=== PATIENT | male | born 1940 | race Caucasian/White ===

== ENCOUNTER 2017-07-05 23:33 | Inpatient (IN) ==
[2017-07-06] MEDS ORDERED: ONDANSETRON 4 MG/2 ML VIAL IV STA (01:43)
[2017-07-06] MEDS ORDERED: SODIUM CHLORIDE 0.9% 500 ML IV STA (01:43)
[2017-07-06] MEDS ORDERED: ONDANSETRON 4 MG/2 ML VIAL ONE (01:57)
[2017-07-06 02:49] LABS: Basophils % 0.2 % (0.0-0.8); Eosinophils % 0.1 % (0.00-10.9); Hematocrit 38.9 VOL% (42.0-52.0); Hemoglobin 12.6 GM/DL (14.0-18.0); Immature Granulocytes % 0.8 %; Immature Granulocytes Absolute 0.12 #; Lymphocytes # 2.1 10*3/uL (1.4-4.0); Lymphocytes % 14.4 % (21.2-54.2); Mean Corpuscular HGB Conc 32.4 GM/DL (32-36); Mean Corpuscular Hemoglobin 32 PG (27-34); Mean Corpuscular Volume 98.5 FL (87-102); Mean Platelet Volume 10.1 FL (9.6-12.0); Monocytes # 0.5 10*3/uL (0.11-0.8); Monocytes % 3.5 % (1.7-12.7); Neutrophils # 11.6 10*3/uL (1.4-7.4); Platelet Count 160 T/CUMM (130-400); Red Blood Count 3.95 MC/CUMM (3.8-5.5); Red Cell Distribution Width 12.4 % (9.3-17.3); White Blood Count 14.3 T/CUMM (4-12)
[2017-07-06 02:58] LABS: INR 1.1; PT Patient Result 11.6 SECS
[2017-07-06 03:20] LABS: Alanine Aminotransferase 34 U/L (16-61); Albumin 3.7 G/DL (3.4-5.0); Alkaline Phosphatase 66 U/L (45-117); Aspartate Amino Transferase 37 U/L (0-37); Blood Urea Nitrogen 10 MG/DL (7-18); Calcium 8.8 MG/DL (8.5-10.1); Glucose 125 MG/DL (74-106); Osmolality,Calculated 274.7 MOS/KG (273-304); Potassium 3.6 MMOL/L (3.5-5.1); Sodium 138 MMOL/L (136-145); Troponin I Only < 0.015 NG/ML (0.00-0.045)
[2017-07-06 03:29] LABS: Apearance,Urine CLEAR (Clear); Bilirubin,Urine Negative (Negative); Blood, Urine Moderate mg/dL (Negative); Glucose,Urine (UA) Negative (Negative); Ketones,Urine 5 mg/dL (Negative); Mucus,Urine Occasional /LPF (Occasional); Nitrite,Urine Negative (Negative); Protein,Urine 30 MG/DL; RBC,Urine 69 /HPF (0-4); Urine Color Yellow (Yellow); Urine Specific Gravity 1.009 (1.001-1.035); Urine Urobilinogen < 2.0 EU/DL (0.2-1.0); WBC,Urine 4 /HPF (0-6)
[2017-07-06 03:57] LABS: Sedimentation Rate-Westergren 34 MM/HR (0-20)
[2017-07-06] MEDS ORDERED: CALCIUM (CARBONATE)/VITAMIN D 250 MG-125 UNIT TABLET PO SCH (09:00)
[2017-07-06] MEDS: TAMSULOSIN 0.4 MG CAPSULE PO SCH ×2 (10:24→21:35)
[2017-07-06] MEDS: ASCORBIC ACID 500 MG TABLET PO SCH (10:26)
[2017-07-06] MEDS: DIPYRIDAMOLE 50 MG TABLET PO SCH ×2 (10:27→15:01)
[2017-07-06] MEDS: TOBRAMYCIN/DEXAMETHASONE 0.3%-0.1% OPH SUSP 2.5 ML BOTTLE RIGHT EYE SCH ×3 (10:27→21:35)
[2017-07-06] MEDS: prednisoLONE ACETATE 1% OPH SUSP 5 ML BOTTLE BOTH EYES SCH (10:27)
[2017-07-06] MEDS: CALCIUM (CARBONATE)/VITAMIN D 500 MG-200 UNIT TABLET PO SCH (10:27)
[2017-07-06] MEDS: PARoxetine 20 MG TABLET PO SCH (10:27)
[2017-07-06] MEDS ORDERED: ONDANSETRON 4 MG/2 ML VIAL IV PRN (10:38)
[2017-07-06] MEDS: MULTIVITAMIN (CENTRUM) TABLET PO SCH (14:49)
[2017-07-06] MEDS: amLODIPine 5 MG TABLET PO SCH (14:49)
[2017-07-06] MEDS: PANTOPRAZOLE 40 MG TABLET PO SCH (14:49)
[2017-07-06] MEDS: HEPARIN DRIP 25,000 UNITS/500 ML PREMIX IV SCH (17:24)
[2017-07-06] MEDS: WARFARIN 5 MG TABLET PO SCH (17:32)
[2017-07-06] MEDS ORDERED: BIOTIN PO SCH (21:00)
[2017-07-06] MEDS: SIMVASTATIN 20 MG TABLET PO SCH (21:35)
[2017-07-07] MEDS ORDERED: ACETAMINOPHEN 325 MG TABLET PO PRN (00:18)
[2017-07-07 04:57] LABS: Basophils % 0.3 % (0.0-0.8); Eosinophils # 0.1 10*3/uL (0.0-0.87); Eosinophils % 0.8 % (0.00-10.9); Hematocrit 34.2 VOL% (42.0-52.0); Hemoglobin 11.2 GM/DL (14.0-18.0); Immature Granulocytes % 1.1 %; Immature Granulocytes Absolute 0.12 #; Lymphocytes # 2.6 10*3/uL (1.4-4.0); Lymphocytes % 24.9 % (21.2-54.2); Mean Corpuscular HGB Conc 32.7 GM/DL (32-36); Mean Corpuscular Hemoglobin 32 PG (27-34); Mean Platelet Volume 10.1 FL (9.6-12.0); Monocytes # 0.7 10*3/uL (0.11-0.8); Monocytes % 6.6 % (1.7-12.7); Neutrophils % 66.3 % (38.7-73.9); Platelet Count 158 T/CUMM (130-400); Red Blood Count 3.49 MC/CUMM (3.8-5.5); Red Cell Distribution Width 12.4 % (9.3-17.3); White Blood Count 10.6 T/CUMM (4-12)
[2017-07-07 05:10] LABS: INR 1.2; PT Patient Result 12.7 SECS
[2017-07-07 06:50] LABS: Calcium 8.9 MG/DL (8.5-10.1); Osmolality,Calculated 277.4 MOS/KG (273-304); Potassium 3.8 MMOL/L (3.5-5.1)
[2017-07-07 06:53] LABS: Calcium 8.9 MG/DL (8.5-10.1); Osmolality,Calculated 276.4 MOS/KG (273-304); Potassium 3.8 MMOL/L (3.5-5.1); Risk Ratio 3.08; Thyroid Stimulating Hormone 1.02 uIU/ml (0.358-3.74); VLDL CHOLESTEROL 21.6 MG/DL
[2017-07-07] MEDS: TAMSULOSIN 0.4 MG CAPSULE PO SCH ×2 (09:24→21:56)
[2017-07-07] MEDS: PARoxetine 20 MG TABLET PO SCH (09:24)
[2017-07-07] MEDS: CALCIUM (CARBONATE)/VITAMIN D 500 MG-200 UNIT TABLET PO SCH (09:24)
[2017-07-07] MEDS: ASCORBIC ACID 500 MG TABLET PO SCH (09:25)
[2017-07-07] MEDS: TOBRAMYCIN/DEXAMETHASONE 0.3%-0.1% OPH SUSP 2.5 ML BOTTLE RIGHT EYE SCH ×3 (09:25→21:57)
[2017-07-07] MEDS: MULTIVITAMIN (CENTRUM) TABLET PO SCH (11:36)
[2017-07-07] MEDS: PANTOPRAZOLE 40 MG TABLET PO SCH (11:36)
[2017-07-07] MEDS: amLODIPine 5 MG TABLET PO SCH (11:36)
[2017-07-07] MEDS: HEPARIN DRIP 25,000 UNITS/500 ML PREMIX IV SCH (16:23)
[2017-07-07] MEDS: WARFARIN 5 MG TABLET PO SCH (18:04)
[2017-07-07] MEDS: SIMVASTATIN 20 MG TABLET PO SCH (21:56)
[2017-07-07] MEDS: NEOMYCIN/POLYMYXIN/BACITRACIN OINT 0.9 GM PACK TOP SCH (21:57)
[2017-07-07] MEDS ORDERED: ZALEPLON 5 MG CAPSULE PO PRN (22:59)
[2017-07-08] MEDS: HEPARIN DRIP 25,000 UNITS/500 ML PREMIX IV SCH (02:20)
[2017-07-08 05:54] LABS: INR 1.6; PT Patient Result 16.7 SECS
[2017-07-08 06:13] LABS: Calcium 7.7 MG/DL (8.5-10.1); Potassium 3.2 MMOL/L (3.5-5.1)
[2017-07-08] MEDS: CALCIUM (CARBONATE)/VITAMIN D 500 MG-200 UNIT TABLET PO SCH (09:29)
[2017-07-08] MEDS: ASCORBIC ACID 500 MG TABLET PO SCH (09:30)
[2017-07-08] MEDS: POTASSIUM CHLORIDE 20 MEQ TABLET PO PRN ×2 (09:30→12:06)
[2017-07-08] MEDS: PARoxetine 20 MG TABLET PO SCH (09:30)
[2017-07-08] MEDS: TAMSULOSIN 0.4 MG CAPSULE PO SCH (09:31)
[2017-07-08] MEDS: prednisoLONE ACETATE 1% OPH SUSP 5 ML BOTTLE BOTH EYES SCH (09:32)
[2017-07-08] MEDS: NEOMYCIN/POLYMYXIN/BACITRACIN OINT 0.9 GM PACK TOP SCH (09:32)
[2017-07-08] MEDS: TOBRAMYCIN/DEXAMETHASONE 0.3%-0.1% OPH SUSP 2.5 ML BOTTLE RIGHT EYE SCH (09:32)
[2017-07-08 11:22] VITALS: BP 110/62
[2017-07-08] MEDS: PANTOPRAZOLE 40 MG TABLET PO SCH (12:06)
[2017-07-08] MEDS: amLODIPine 5 MG TABLET PO SCH (12:06)
[2017-07-08] MEDS: MULTIVITAMIN (CENTRUM) TABLET PO SCH (12:06)
== END 2017-07-08 14:00 | DRG 66 ==
LOC: EDUNIT# → EDBD → N.EDINP 23:33 → N.ED 23:33 → N.TELES 07-06 05:32
PROVIDERS: ADMIT Hospitalist; ATTEND Hospitalist

== ENCOUNTER 2020-10-06 05:34 | Inpatient (IN) ==
[2020-09-29 12:39] LABS: Bilirubin,Urine Negative (Negative); Blood, Urine Negative (Negative); Glucose,Urine (UA) Negative (Negative); Hyaline Casts,Urine 1 /LPF (0-3); Ketones,Urine Negative (Negative); Nitrite,Urine Negative (Negative); Protein,Urine Negative; RBC,Urine 1 /HPF (0-4); Squamous Epithelial Cell,Urine Occasional /HPF (0-10); Urine Appearance CLEAR (Clear); Urine Color Yellow (Yellow); Urine Specific Gravity 1.014 (1.001-1.035); Urine Urobilinogen < 2.0 EU/DL (0.2-1.0)
[2020-09-29 12:51] LABS: INR 1.5; PT Patient Result 16.5 SECS (10.5-12.0); Partial Thromboplastin Time 31.9 SECS (23.9-33.8)
[2020-10-06] MEDS ORDERED: VANCOMYCIN INJ 1,000 MG in SODIUM CHLORIDE 0.9% 250 ML IV ONE (06:00)
[2020-10-06] MEDS ORDERED: CLINDAMYCIN INJ 900 MG/50 ML PREMIX IV ONE (06:00)
[2020-10-06 07:16] LABS: INR 1.2; PT Patient Result 13.4 SECS (10.5-12.0); Partial Thromboplastin Time 27.4 SECS (23.9-33.8)
[2020-10-06] MEDS: LACTATED RINGERS 1,000 ML IV SCH ×2 (08:20→13:45)
[2020-10-06] MEDS ORDERED: DEXMEDETOMIDINE 200 MCG/2 ML VIAL ONE (09:53)
[2020-10-06] MEDS ORDERED: MIDAZOLAM 2 MG/2 ML VIAL ONE (09:53)
[2020-10-06] MEDS ORDERED: ONDANSETRON 4 MG/2 ML VIAL ONE (09:54)
[2020-10-06] MEDS ORDERED: BACITRACIN OINT 0.9 GM PACK TOP ONE (10:02)
[2020-10-06] MEDS ORDERED: PHENYLEPHRINE DRIP 20 MG/250 ML PREMIX IV ONE (10:28)
[2020-10-06] MEDS ORDERED: HEPARIN/NACL 0.9% 2 UNITS/ML 1,000 UNIT/500 ML BAG IV ONE (10:28)
[2020-10-06] MEDS ORDERED: SEVOFLURANE 1 UNIT/15 MINUTE INH ONE (10:37)
[2020-10-06] MEDS ORDERED: ETOMIDATE 40 MG/20 ML VIAL IV ONE (10:37)
[2020-10-06] MEDS ORDERED: GLYCOPYRROLATE 0.4 MG/2 ML VIAL ONE ×2 (10:37→12:16)
[2020-10-06] MEDS ORDERED: ROCURONIUM 50 MG/5 ML VIAL IV ONE (10:37)
[2020-10-06] MEDS ORDERED: ePHEDrine 50 MG/ML VIAL ONE (10:38)
[2020-10-06] MEDS ORDERED: DEXAMETHASONE 4 MG/1 ML VIAL ONE (11:43)
[2020-10-06] MEDS ORDERED: fentaNYL 100 MCG/2 ML VIAL ONE (11:44)
[2020-10-06] MEDS ORDERED: NEOSTIGMINE 10 MG/10 ML VIAL ONE (12:16)
[2020-10-06] MEDS ORDERED: GABAPENTIN 300 MG CAPSULE PO PRN (12:35)
[2020-10-06] MEDS ORDERED: MAGNESIUM HYDROXIDE SUSP 30 ML UDCUP PO PRN (12:37)
[2020-10-06] MEDS ORDERED: ZALEPLON 5 MG CAPSULE PO PRN (12:37)
[2020-10-06] MEDS ORDERED: MORPHINE 4 MG/1 ML VIAL IV PRN ×2 (12:37)
[2020-10-06] MEDS ORDERED: ONDANSETRON 4 MG/2 ML VIAL IV PRN (12:37)
[2020-10-06 14:26] LABS: Calcium 8.4 MG/DL (8.5-10.1); Osmolality,Calculated 277.7 MOS/KG (273-304); Potassium 3.9 MMOL/L (3.5-5.1)
[2020-10-06] MEDS: CLINDAMYCIN INJ 900 MG/50 ML PREMIX IV SCH (16:29)
[2020-10-06] MEDS: ASCORBIC ACID 500 MG TABLET PO SCH (20:28)
[2020-10-06] MEDS: DOCUSATE SODIUM 100 MG CAPSULE PO SCH (20:28)
[2020-10-06] MEDS: SIMVASTATIN 20 MG TABLET PO SCH (20:28)
[2020-10-06] MEDS: METOPROLOL TARTRATE 25 MG TABLET PO SCH (20:29)
[2020-10-06] MEDS ORDERED: WARFARIN 2.5 MG TABLET PO SCH (21:00)
[2020-10-07] MEDS: CLINDAMYCIN INJ 900 MG/50 ML PREMIX IV SCH (02:00)
[2020-10-07 05:54] LABS: Basophils % 0.1 % (0.0-0.8); Hematocrit 29.6 VOL% (42.0-52.0); Hemoglobin 9.9 GM/DL (14.0-18.0); Immature Granulocytes % 0.6 %; Immature Granulocytes Absolute 0.07 #; Lymphocytes # 1.3 10*3/uL (1.4-4.0); Lymphocytes % 10.3 % (21.2-54.2); Mean Corpuscular HGB Conc 33.4 GM/DL (32-36); Mean Corpuscular Volume 97.7 FL (87-102); Mean Platelet Volume 9.9 FL (9.6-12.0); Monocytes % 7.7 % (1.7-12.7); Neutrophils % 81.3 % (38.7-73.9); Platelet Count 162 T/CUMM (130-400); Red Blood Count 3.03 MC/CUMM (3.8-5.5); Red Cell Distribution Width 13.3 % (9.3-17.3); White Blood Count 12.5 T/CUMM (4-12)
[2020-10-07 05:55] LABS: INR 1.1; PT Patient Result 12.4 SECS (10.5-12.0)
[2020-10-07 06:16] LABS: Calcium 8.3 MG/DL (8.5-10.1); Osmolality,Calculated 269.2 MOS/KG (273-304); Potassium 4.3 MMOL/L (3.5-5.1)
[2020-10-07] MEDS ORDERED: BENZOCAINE/MENTHOL LOZENGE 18/BOX PO PRN (07:10)
[2020-10-07] MEDS: hydroCHLOROthiazide 12.5 MG CAPSULE PO SCH (08:16)
[2020-10-07] MEDS: METOPROLOL TARTRATE 25 MG TABLET PO SCH (08:17)
[2020-10-07] MEDS: DOCUSATE SODIUM 100 MG CAPSULE PO SCH ×2 (09:43→20:52)
[2020-10-07] MEDS: PARoxetine 20 MG TABLET PO SCH (09:43)
[2020-10-07] MEDS: PANTOPRAZOLE 40 MG TABLET PO SCH (09:44)
[2020-10-07] MEDS: ASCORBIC ACID 500 MG TABLET PO SCH ×2 (09:44→20:52)
[2020-10-07] MEDS ORDERED: LACTATED RINGERS 500 ML IV ONE ×3 (12:03→19:57)
[2020-10-07] MEDS: TAMSULOSIN 0.4 MG CAPSULE PO SCH (12:23)
[2020-10-07] MEDS: ENOXAPARIN 100 MG/ML SYRINGE SUBCUT SCH ×2 (12:24→22:09)
[2020-10-07] MEDS ORDERED: ALUMINUM/MAGNES/SIMETH MAX STR 30 ML UDCUP PO PRN (15:44)
[2020-10-07] MEDS: WARFARIN 2.5 MG TABLET PO SCH (18:12)
[2020-10-07] MEDS: SIMVASTATIN 20 MG TABLET PO SCH (20:52)
[2020-10-07] MEDS: LACTATED RINGERS 1,000 ML IV SCH (20:55)
[2020-10-07 21:48] LABS: Bilirubin,Urine Negative (Negative); Blood, Urine Small mg/dL (Negative); Glucose,Urine (UA) Negative (Negative); Hyaline Casts,Urine 1 /LPF (0-3); Ketones,Urine Negative (Negative); Nitrite,Urine Negative (Negative); Protein,Urine Negative; RBC,Urine 3 /HPF (0-4); Squamous Epithelial Cell,Urine Occasional /HPF (0-10); Urine Appearance CLEAR (Clear); Urine Color Yellow (Yellow); Urine Specific Gravity 1.012 (1.001-1.035); Urine Urobilinogen < 2.0 EU/DL (0.2-1.0)
[2020-10-07] MEDS ORDERED: ZIPRASIDONE 20 MG/1 ML VIAL IM PRN (22:10)
[2020-10-08] MEDS: LACTATED RINGERS 1,000 ML IV SCH ×3 (00:47→18:07)
[2020-10-08] MEDS ORDERED: LORazepam 2 MG/1 ML VIAL IV ONE (01:50)
[2020-10-08 05:31] LABS: Basophils % 0.1 % (0.0-0.8); Eosinophils % 0.3 % (0.00-10.9); Hematocrit 28.5 VOL% (42.0-52.0); Hemoglobin 9.4 GM/DL (14.0-18.0); Immature Granulocytes % 0.6 %; Immature Granulocytes Absolute 0.06 #; Lymphocytes # 1.3 10*3/uL (1.4-4.0); Lymphocytes % 13.1 % (21.2-54.2); Monocytes % 9.4 % (1.7-12.7); Neutrophils % 76.5 % (38.7-73.9); Platelet Count 144 T/CUMM (130-400); Red Blood Count 2.88 MC/CUMM (3.8-5.5); Red Cell Distribution Width 13.5 % (9.3-17.3); White Blood Count 10.3 T/CUMM (4-12)
[2020-10-08 05:37] LABS: INR 1.3; PT Patient Result 13.9 SECS (10.5-12.0)
[2020-10-08 05:47] LABS: Albumin 2.9 G/DL (3.4-5.0); Bilirubin,Total 0.8 MG/DL (0.2-1.0); Calcium 8.3 MG/DL (8.5-10.1); Potassium 3.7 MMOL/L (3.5-5.1); Total Protein 5.9 G/DL (6.4-8.2)
[2020-10-08] MEDS ORDERED: BISACODYL 10 MG SUPP RECTAL ONE (08:05)
[2020-10-08] MEDS: ACETAMINOPHEN 650 MG SUPP RECTAL PRN (10:57)
[2020-10-08] MEDS ORDERED: ENOXAPARIN 40 MG/0.4 ML SYRINGE SUBCUT SCH (12:00)
[2020-10-08] MEDS: hydroCHLOROthiazide 12.5 MG CAPSULE PO SCH ×2 (12:28→14:26)
[2020-10-08] MEDS: AMIODARONE 200 MG TABLET PO SCH ×2 (12:28→20:54)
[2020-10-08] MEDS: DOCUSATE SODIUM 100 MG CAPSULE PO SCH ×3 (12:28→22:30)
[2020-10-08] MEDS: PARoxetine 20 MG TABLET PO SCH ×2 (12:29→14:26)
[2020-10-08] MEDS: PANTOPRAZOLE 40 MG TABLET PO SCH (12:29)
[2020-10-08] MEDS: ASCORBIC ACID 500 MG TABLET PO SCH ×2 (12:30→20:54)
[2020-10-08] MEDS: TAMSULOSIN 0.4 MG CAPSULE PO SCH (14:27)
[2020-10-08] MEDS: ENOXAPARIN 100 MG/ML SYRINGE SUBCUT SCH (17:00)
[2020-10-08] MEDS: WARFARIN 2.5 MG TABLET PO SCH (17:25)
[2020-10-08] MEDS: SIMVASTATIN 20 MG TABLET PO SCH (20:54)
[2020-10-09] MEDS: ACETAMINOPHEN 650 MG SUPP RECTAL PRN (01:08)
[2020-10-09] MEDS: LACTATED RINGERS 1,000 ML IV SCH ×2 (01:09→09:06)
[2020-10-09 06:12] LABS: Basophils % 0.2 % (0.0-0.8); Eosinophils % 0.1 % (0.00-10.9); Hematocrit 24.1 VOL% (42.0-52.0); Hemoglobin 7.9 GM/DL (14.0-18.0); Lymphocytes # 1.3 10*3/uL (1.4-4.0); Lymphocytes % 12.2 % (21.2-54.2); Mean Corpuscular HGB Conc 32.8 GM/DL (32-36); Mean Platelet Volume 9.9 FL (9.6-12.0); Monocytes % 7.8 % (1.7-12.7); Neutrophils % 78.7 % (38.7-73.9); Platelet Count 120 T/CUMM (130-400); Red Blood Count 2.46 MC/CUMM (3.8-5.5); Red Cell Distribution Width 13.2 % (9.3-17.3); White Blood Count 10.3 T/CUMM (4-12)
[2020-10-09 06:21] LABS: INR 1.6; PT Patient Result 17.2 SECS (10.5-12.0)
[2020-10-09] MEDS ORDERED: FUROSEMIDE 40 MG/4 ML VIAL IV PRN (06:32)
[2020-10-09] MEDS ORDERED: SODIUM CHLORIDE 0.9% 1,000 ML IV PRN ×3 (06:32→11:23)
[2020-10-09] MEDS: hydroCHLOROthiazide 12.5 MG CAPSULE PO SCH (09:09)
[2020-10-09] MEDS: DOCUSATE SODIUM 100 MG CAPSULE PO SCH ×2 (09:51→20:46)
[2020-10-09] MEDS: AMIODARONE 200 MG TABLET PO SCH ×2 (09:51→20:47)
[2020-10-09] MEDS: PARoxetine 20 MG TABLET PO SCH (09:51)
[2020-10-09] MEDS: CELECOXIB 200 MG CAPSULE PO SCH (09:51)
[2020-10-09] MEDS: CALCIUM (CARBONATE)/VITAMIN D 600 MG-400 UNIT TABLET PO SCH (09:51)
[2020-10-09] MEDS: ASCORBIC ACID 500 MG TABLET PO SCH ×2 (09:51→20:47)
[2020-10-09] MEDS: PANTOPRAZOLE 40 MG TABLET PO SCH (09:52)
[2020-10-09] MEDS: MULTIVITAMIN (CENTRUM) TABLET PO SCH (11:31)
[2020-10-09] MEDS: TAMSULOSIN 0.4 MG CAPSULE PO SCH (11:31)
[2020-10-09] MEDS: WARFARIN 2.5 MG TABLET PO SCH (18:17)
[2020-10-09] MEDS: SIMVASTATIN 20 MG TABLET PO SCH (20:47)
[2020-10-09] MEDS ORDERED: BIOTIN 1 MG PO SCH (21:00)
[2020-10-10 06:05] LABS: Basophils % 0.1 % (0.0-0.8); Eosinophils # 0.1 10*3/uL (0.0-0.87); Eosinophils % 1.2 % (0.00-10.9); Hematocrit 20.7 VOL% (42.0-52.0); Hemoglobin 7.1 GM/DL (14.0-18.0); Immature Granulocytes % 0.6 %; Immature Granulocytes Absolute 0.05 #; Lymphocytes # 0.8 10*3/uL (1.4-4.0); Lymphocytes % 9.2 % (21.2-54.2); Mean Corpuscular HGB Conc 34.3 GM/DL (32-36); Mean Corpuscular Volume 94.1 FL (87-102); Mean Platelet Volume 10.1 FL (9.6-12.0); Monocytes % 9.4 % (1.7-12.7); Neutrophils % 79.5 % (38.7-73.9); Platelet Count 131 T/CUMM (130-400); Red Cell Distribution Width 12.9 % (9.3-17.3); White Blood Count 8.5 T/CUMM (4-12)
[2020-10-10 06:07] LABS: Basophils % 0.1 % (0.0-0.8); Eosinophils # 0.1 10*3/uL (0.0-0.87); Eosinophils % 1.4 % (0.00-10.9); Hematocrit 20.7 VOL% (42.0-52.0); Hemoglobin 7.1 GM/DL (14.0-18.0); Immature Granulocytes % 0.6 %; Immature Granulocytes Absolute 0.05 #; Lymphocytes # 0.7 10*3/uL (1.4-4.0); Lymphocytes % 8.7 % (21.2-54.2); Mean Corpuscular HGB Conc 34.3 GM/DL (32-36); Mean Corpuscular Volume 94.1 FL (87-102); Mean Platelet Volume 9.9 FL (9.6-12.0); Monocytes % 9.2 % (1.7-12.7); Platelet Count 127 T/CUMM (130-400); Red Cell Distribution Width 12.8 % (9.3-17.3); White Blood Count 8.1 T/CUMM (4-12)
[2020-10-10 06:16] LABS: INR 1.5; PT Patient Result 16.6 SECS (10.5-12.0)
[2020-10-10 06:29] LABS: Ferritin 350.7 ng/ml (26-388)
[2020-10-10 07:16] LABS: Sedimentation Rate-Westergren 111 MM/HR (0-20)
[2020-10-10] MEDS ORDERED: SODIUM CHLORIDE 0.9% 1,000 ML IV PRN (07:19)
[2020-10-10] MEDS ORDERED: SODIUM CHLORIDE 0.9% IV ONE (10:00)
[2020-10-10] MEDS ORDERED: [UNRECOGNIZED DRUG - OTHER] IV ONE (10:00)
[2020-10-10] MEDS: ASCORBIC ACID 500 MG TABLET PO SCH ×2 (10:10→21:00)
[2020-10-10] MEDS: hydroCHLOROthiazide 12.5 MG CAPSULE PO SCH (10:10)
[2020-10-10] MEDS: CALCIUM (CARBONATE)/VITAMIN D 600 MG-400 UNIT TABLET PO SCH (10:10)
[2020-10-10] MEDS: AMIODARONE 200 MG TABLET PO SCH ×2 (10:10→21:00)
[2020-10-10] MEDS: PANTOPRAZOLE 40 MG TABLET PO SCH (10:10)
[2020-10-10] MEDS: DOCUSATE SODIUM 100 MG CAPSULE PO SCH ×2 (10:10→21:27)
[2020-10-10] MEDS: CELECOXIB 200 MG CAPSULE PO SCH (10:10)
[2020-10-10] MEDS: PARoxetine 20 MG TABLET PO SCH (10:10)
[2020-10-10] MEDS: TAMSULOSIN 0.4 MG CAPSULE PO SCH (11:13)
[2020-10-10] MEDS: MULTIVITAMIN (CENTRUM) TABLET PO SCH (11:13)
[2020-10-10] MEDS ORDERED: WARFARIN 2.5 MG TABLET PO ONE (15:45)
[2020-10-10] MEDS: WARFARIN 2.5 MG TABLET PO SCH (17:15)
[2020-10-10] MEDS: SIMVASTATIN 20 MG TABLET PO SCH (21:01)
[2020-10-11 04:40] LABS: Basophils % 0.3 % (0.0-0.8); Eosinophils # 0.2 10*3/uL (0.0-0.87); Hemoglobin 8.1 GM/DL (14.0-18.0); Immature Granulocytes % 0.8 %; Immature Granulocytes Absolute 0.06 #; Lymphocytes # 0.8 10*3/uL (1.4-4.0); Lymphocytes % 9.9 % (21.2-54.2); Mean Corpuscular HGB Conc 35.2 GM/DL (32-36); Mean Platelet Volume 10.1 FL (9.6-12.0); Monocytes % 11.4 % (1.7-12.7); Neutrophils % 75.6 % (38.7-73.9); Platelet Count 149 T/CUMM (130-400)
[2020-10-11 04:52] LABS: INR 1.7; PT Patient Result 18.2 SECS (10.5-12.0)
[2020-10-11] MEDS: CELECOXIB 200 MG CAPSULE PO SCH (10:35)
[2020-10-11] MEDS: PARoxetine 20 MG TABLET PO SCH (10:35)
[2020-10-11] MEDS: ASCORBIC ACID 500 MG TABLET PO SCH ×2 (10:35→21:29)
[2020-10-11] MEDS: CALCIUM (CARBONATE)/VITAMIN D 600 MG-400 UNIT TABLET PO SCH (10:35)
[2020-10-11] MEDS: hydroCHLOROthiazide 12.5 MG CAPSULE PO SCH (10:35)
[2020-10-11] MEDS: AMIODARONE 200 MG TABLET PO SCH ×2 (10:35→21:29)
[2020-10-11] MEDS: FERROUS SULFATE 325 MG TABLET PO SCH ×2 (10:35→21:29)
[2020-10-11] MEDS: DOCUSATE SODIUM 100 MG CAPSULE PO SCH ×2 (10:35→21:53)
[2020-10-11] MEDS: PANTOPRAZOLE 40 MG TABLET PO SCH (10:35)
[2020-10-11] MEDS: MULTIVITAMIN (CENTRUM) TABLET PO SCH (12:28)
[2020-10-11] MEDS: TAMSULOSIN 0.4 MG CAPSULE PO SCH (12:28)
[2020-10-11] MEDS ORDERED: WARFARIN 2.5 MG TABLET PO ONE (12:34)
[2020-10-11] MEDS: WARFARIN 2.5 MG TABLET PO SCH (18:27)
[2020-10-11] MEDS: SIMVASTATIN 20 MG TABLET PO SCH (21:29)
[2020-10-12 05:36] LABS: Basophils % 0.1 % (0.0-0.8); Eosinophils # 0.2 10*3/uL (0.0-0.87); Eosinophils % 2.1 % (0.00-10.9); Hematocrit 24.7 VOL% (42.0-52.0); Hemoglobin 8.3 GM/DL (14.0-18.0); Immature Granulocytes % 1.4 %; Immature Granulocytes Absolute 0.12 #; Lymphocytes # 1.2 10*3/uL (1.4-4.0); Lymphocytes % 13.3 % (21.2-54.2); Mean Corpuscular HGB Conc 33.6 GM/DL (32-36); Mean Corpuscular Volume 94.3 FL (87-102); Mean Platelet Volume 9.4 FL (9.6-12.0); Monocytes % 12.1 % (1.7-12.7); Platelet Count 186 T/CUMM (130-400); Red Blood Count 2.62 MC/CUMM (3.8-5.5); Red Cell Distribution Width 12.9 % (9.3-17.3); White Blood Count 8.7 T/CUMM (4-12)
[2020-10-12 05:54] LABS: Calcium 8.4 MG/DL (8.5-10.1); Osmolality,Calculated 258.8 MOS/KG (273-304); Potassium 3.3 MMOL/L (3.5-5.1)
[2020-10-12 05:59] LABS: INR 3.3; PT Patient Result 33.5 SECS (10.5-12.0)
[2020-10-12] MEDS ORDERED: POTASSIUM CHLORIDE 20 MEQ TABLET PO ONE (08:00)
[2020-10-12 08:19] VITALS: BP 138/63
[2020-10-12 09:05] LABS: Hemoglobin A1 (Alkaline) 96.6 % (96.5-98.5); Hemoglobin A2 (Alkaline) 3.4 % (1.5-3.5)
[2020-10-12] MEDS: AMIODARONE 200 MG TABLET PO SCH (09:16)
[2020-10-12] MEDS: FERROUS SULFATE 325 MG TABLET PO SCH (09:16)
[2020-10-12] MEDS: CALCIUM (CARBONATE)/VITAMIN D 600 MG-400 UNIT TABLET PO SCH (09:16)
[2020-10-12] MEDS: CELECOXIB 200 MG CAPSULE PO SCH (09:16)
[2020-10-12] MEDS: ASCORBIC ACID 500 MG TABLET PO SCH (09:16)
[2020-10-12] MEDS: PARoxetine 20 MG TABLET PO SCH (09:16)
[2020-10-12] MEDS: PANTOPRAZOLE 40 MG TABLET PO SCH (09:16)
[2020-10-12] MEDS: DOCUSATE SODIUM 100 MG CAPSULE PO SCH (09:16)
[2020-10-12] MEDS ORDERED: amLODIPine 5 MG TABLET PO SCH (12:00)
[2020-10-12] MEDS: TAMSULOSIN 0.4 MG CAPSULE PO SCH (14:26)
[2020-10-12] MEDS: MULTIVITAMIN (CENTRUM) TABLET PO SCH (14:26)
[2020-10-12 18:28] LABS: Folate 18.75 NG/ML (5.38-24.0); Vitamin B12 616 PG/ML (211-911)
== END 2020-10-12 15:44 | disposition swing bed (61) | DRG 467 ==
LOC: N.OR 05:34 → N.SDSINP 05:36 → N.3E 15:36
PROVIDERS: ADMIT Orthopaedic Surgery; ATTEND Orthopaedic Surgery

== ENCOUNTER 2020-12-19 15:39 | Observation (INO) ==
[2020-12-19 17:15] LABS: Basophils % 0.1 % (0.0-0.8); Eosinophils # 0.1 10*3/uL (0.0-0.87); Eosinophils % 1.9 % (0.00-10.9); Hematocrit 33.8 VOL% (42.0-52.0); Hemoglobin 10.8 GM/DL (14.0-18.0); Immature Granulocytes Absolute 0.07 #; Lymphocytes # 2.1 10*3/uL (1.4-4.0); Mean Platelet Volume 9.5 FL (9.6-12.0); Monocytes % 11.9 % (1.7-12.7); Neutrophils % 54.1 % (38.7-73.9); Platelet Count 200 T/CUMM (130-400); Red Blood Count 3.52 MC/CUMM (3.8-5.5); Red Cell Distribution Width 14.4 % (9.3-17.3); White Blood Count 6.8 T/CUMM (4-12)
[2020-12-19 17:39] LABS: INR 5.9
[2020-12-19 17:40] LABS: Albumin 3.7 G/DL (3.4-5.0); Bilirubin,Total 0.4 MG/DL (0.20-1.00); Calcium 8.6 MG/DL (8.5-10.1); Osmolality,Calculated 283.5 MOS/KG (273-304); Total Protein 7.3 G/DL (6.4-8.2)
[2020-12-19] MEDS ORDERED: ONDANSETRON 4 MG/2 ML VIAL IV PRN (19:34)
[2020-12-19] MEDS ORDERED: CALCIUM CARBONATE CHEW 500 MG TABLET PO PRN (19:34)
[2020-12-19] MEDS ORDERED: ACETAMINOPHEN 325 MG TABLET PO PRN (19:34)
[2020-12-19] MEDS ORDERED: FUROSEMIDE 20 MG TABLET PO PRN (21:58)
[2020-12-19] MEDS ORDERED: BIOTIN 1 MG PO SCH (21:58)
[2020-12-19 22:02] LABS: Hematocrit 34.1 VOL% (42.0-52.0); Hemoglobin 10.7 GM/DL (14.0-18.0)
[2020-12-19] MEDS: AMIODARONE 200 MG TABLET PO SCH (23:06)
[2020-12-19] MEDS: SIMVASTATIN 20 MG TABLET PO SCH (23:06)
[2020-12-19] MEDS: MULTIVITAMIN (CENTRUM) TABLET PO SCH (23:06)
[2020-12-19] MEDS: LATANOPROST 0.005% OPH SOLN 2.5 ML BOTTLE RIGHT EYE SCH (23:06)
[2020-12-19] MEDS: GABAPENTIN 300 MG CAPSULE PO SCH (23:07)
[2020-12-20 05:38] LABS: Basophils % 0.4 % (0.0-0.8); Eosinophils # 0.2 10*3/uL (0.0-0.87); Eosinophils % 3.3 % (0.00-10.9); Hematocrit 32.1 VOL% (42.0-52.0); Hemoglobin 10.3 GM/DL (14.0-18.0); Immature Granulocytes % 1.1 %; Immature Granulocytes Absolute 0.06 #; Lymphocytes # 1.5 10*3/uL (1.4-4.0); Lymphocytes % 26.4 % (21.2-54.2); Mean Corpuscular HGB Conc 32.1 GM/DL (32-36); Mean Corpuscular Volume 95.8 FL (87-102); Mean Platelet Volume 10.1 FL (9.6-12.0); Monocytes % 14.2 % (1.7-12.7); Neutrophils % 54.6 % (38.7-73.9); Platelet Count 185 T/CUMM (130-400); Red Blood Count 3.35 MC/CUMM (3.8-5.5); Red Cell Distribution Width 14.2 % (9.3-17.3); White Blood Count 5.7 T/CUMM (4-12)
[2020-12-20 05:56] LABS: PT Patient Result 55.5 SECS (10.5-12.0)
[2020-12-20 05:58] LABS: INR 5.6
[2020-12-20 06:31] LABS: Eosinophils 2 % (0-10); Lymphocytes 23 % (20-55); Platelet Estimate Normal; Segmented Neutrophils 63 % (50-85); Total Cells Counted 100
[2020-12-20] MEDS: CALCIUM (CARBONATE) 500 MG TABLET PO SCH (09:46)
[2020-12-20] MEDS: AMIODARONE 200 MG TABLET PO SCH ×2 (09:46→20:19)
[2020-12-20] MEDS: TAMSULOSIN 0.4 MG CAPSULE PO SCH (09:46)
[2020-12-20] MEDS: PARoxetine 20 MG TABLET PO SCH (09:46)
[2020-12-20] MEDS: MUPIROCIN 2% OINT 22 GM TUBE TOP SCH (09:48)
[2020-12-20] MEDS: PANTOPRAZOLE 40 MG TABLET PO SCH (12:30)
[2020-12-20] MEDS: ASCORBIC ACID 500 MG TABLET PO SCH (12:30)
[2020-12-20 18:00] LABS: Hematocrit 34.3 VOL% (42.0-52.0); Hemoglobin 10.7 GM/DL (14.0-18.0)
[2020-12-20] MEDS: GABAPENTIN 300 MG CAPSULE PO SCH (20:18)
[2020-12-20] MEDS: MULTIVITAMIN (CENTRUM) TABLET PO SCH (20:18)
[2020-12-20] MEDS: SIMVASTATIN 20 MG TABLET PO SCH (20:19)
[2020-12-20] MEDS: LATANOPROST 0.005% OPH SOLN 2.5 ML BOTTLE RIGHT EYE SCH (20:19)
[2020-12-21 04:14] LABS: Basophils % 0.3 % (0.0-0.8); Eosinophils # 0.2 10*3/uL (0.0-0.87); Eosinophils % 3.3 % (0.00-10.9); Immature Granulocytes Absolute 0.06 #; Lymphocytes # 1.8 10*3/uL (1.4-4.0); Lymphocytes % 31.9 % (21.2-54.2); Mean Corpuscular HGB Conc 31.3 GM/DL (32-36); Mean Platelet Volume 10.1 FL (9.6-12.0); Monocytes % 12.4 % (1.7-12.7); Neutrophils % 51.1 % (38.7-73.9); Platelet Count 183 T/CUMM (130-400); Red Cell Distribution Width 14.3 % (9.3-17.3); White Blood Count 5.7 T/CUMM (4-12)
[2020-12-21 04:22] LABS: INR 3.8
[2020-12-21 04:47] LABS: Calcium 8.7 MG/DL (8.5-10.1); Osmolality,Calculated 282.4 MOS/KG (273-304); Potassium 3.6 MMOL/L (3.5-5.1)
[2020-12-21] MEDS ORDERED: prednisoLONE ACETATE 1% OPH SUSP 5 ML BOTTLE BOTH EYES SCH (09:00)
[2020-12-21] MEDS: TAMSULOSIN 0.4 MG CAPSULE PO SCH (10:08)
[2020-12-21] MEDS: MUPIROCIN 2% OINT 22 GM TUBE TOP SCH (10:08)
[2020-12-21] MEDS: CALCIUM (CARBONATE) 500 MG TABLET PO SCH (10:08)
[2020-12-21] MEDS: AMIODARONE 200 MG TABLET PO SCH (10:09)
[2020-12-21] MEDS: PARoxetine 20 MG TABLET PO SCH (10:09)
[2020-12-21 12:03] VITALS: BP 120/62
[2020-12-21] MEDS: PANTOPRAZOLE 40 MG TABLET PO SCH (12:16)
[2020-12-21] MEDS: ASCORBIC ACID 500 MG TABLET PO SCH (12:16)
== END 2020-12-21 13:02 | disposition home or self-care (01) ==
LOC: N.ED 15:39 → N.5E 15:39 → SUATTDRO 19:34 → N.5E 21:03
PROVIDERS: ADMIT Internal Medicine; ATTEND Internal Medicine